=== PATIENT | male | born 1995 | race Caucasian/White ===

== ENCOUNTER 2022-12-22 00:42 | Emergency (ER) | payer BC, OTHER, SELFPAY ==
[2022-12-22 00:46] VITALS: BP 131/75; PULSE 97; RESP 17; TEMP 36.3; O2SAT 100; BMI 24.4
[2022-12-22 00:52] VITALS: BP 131/75; PULSE 95; O2SAT 100
[2022-12-22 01:11] LABS: Basophils # 0.1 K/mm3 (0-0.2); Basophils % 1.6 % (0.1-2.0); Chloride 105 mmol/L (98-107); Eosinophils # 0.1 K/mm3 (0.0-0.4); Hematocrit 44.1 % (42.0-52.0); Hemoglobin 14.7 g/dL (14.1-18.0); Lymphocytes # 2.6 K/mm3 (0.7-4.5); Mean Corpuscular HGB Conc 33.3 g/dL (31.8-35.4); Mean Platelet Volume 8.7 fl (7.4-10.4); Monocytes # 0.5 K/mm3 (0.1-1.0); Monocytes % 7.1 % (1.7-9.3); Neutrophils # 3.8 K/mm3 (1.8-7.8); Neutrophils % 53.2 % (37.0-80.0); Platelet Count 314 K/mm3 (142-424); Red Blood Count 5.25 M/mm3 (4.60-6.20); Red Cell Distribution Width 13.6 % (11.5-17.5); Sodium 141 mmol/L (136-145); White Blood Count 7.1 K/mm3 (4.8-10.8)
[2022-12-22 01:14] LABS: Alanine Aminotransferase 73 U/L (12-78); Alkaline Phosphatase 60 U/L (38-126); Aspartate Amino Transferase 59 U/L (17-59); Bilirubin,Total 0.5 mg/dl (0.2-1.3); Blood Urea Nitrogen 10 mg/dl (9-20); Creatinine Clearance Estimated 128 mL/min (50-200); Estimated Glomerular Filt Rate 90 ml/min (>60); GFR (African American) 108 ML/MIN (>60)
[2022-12-22 01:15] LABS: Albumin Level 5.2 g/dl (3.5-5.0); Albumin/Globulin Ratio 1.7 (1.1-1.8); Calcium 8.8 mg/dl (8.4-10.2); Carbon Dioxide 24 mmol/L (22.0-30.0); Glucose 137 mg/dl (74-100); Total Protein,Serum 8.2 g/dl (6.3-8.2)
--- NOTE | 2022-12-22 01:22 | [facility].EDALCO ---
Discharge Plan Disposition Chief Complaint: Alcohol Prescriptions Prescriptions: No Action venlafaxine 50 mg Tablet 50 mg PO DAILY lamotrigine 25 mg Tablet,Disintegrating 25 mg PO DAILY Referrals Follow up/Referrals: Provider,Referral, MD [Primary Care Provider] - See instructions Clinical Impressions Clinical Impression: Alcoholic intoxication Instructions Patient Instructions: DI for Alcohol Use Disorder Discharge ED Provider: Peng (ED)Ghulam Alcohol HPI General Chief Complaint: Alcohol Stated Complaint: Intoxicated Time Seen by Provider: 12/22/22 01:22 Mode of Arrival: Wheelchair Source of Information: Patient and Medical Record Limitations: No Limitations Description of Symptoms (Recalled from ER Triage Doc. by RN): pt brought to ED by father in law for alcohol intoxication. he [facility] and had too many drinks. pt denies any pain but reports nausea and vomiting. History of Present Illness HPI narrative: reported using etoh tonight - no fever or trauma - MD complaint: alcohol intoxication Last drink: hours (ago) Chronic alcohol use: No Previous visits for alcohol intoxication: No Recent trauma: No Associated symptoms: nausea and vomiting Treatments prior to arrival: none Related Data Home Medications Medication Instructions Recorded Confirmed lamotrigine 25 mg disintegrating 25 mg PO DAILY bipolar disorder 12/22/22 12/22/22 tablet venlafaxine 50 mg tablet 50 mg PO DAILY Depression 12/22/22 12/22/22 Allergies Allergy/AdvReac Type Severity Reaction Status Date / Time No Known Allergies Allergy Verified 12/22/22 01:00 [facility] Disclaimer: The information contained in this section may have been updated after the patient was seen, as this information can be updated by other users. Social History (Updated 12/22/22 @ 01:05 by Brenna Lr RN) Smoking Status: Never smoker alcohol intake: current current occupational status: employed Travel in the last 8 weeks: None ROS Obtained: Yes All systems reviewed & no additional complaints except as documented Physical Exam General General appearance: alert Head Head exam: normocephalic Eye Eye exam: Present PERRL and EOMI; Absent scleral icterus ENT ENT exam: Present mucous membranes moist Neck Neck exam: Present trachea midline Respiratory Respiratory exam: Present normal lung sounds bilaterally; Absent respiratory distress Cardiovascular Cardiovascular exam: Present regular rate Abdominal Exam Abdominal exam: Present soft Extremities Exam Extremities exam: Present full ROM Neurological Exam Neurological exam: Present alert, oriented X3, CN II-XII intact and other (gcs=14); Absent motor sensory deficit Skin Skin exam: Absent rash Medical Decision Making Medical Records Medical records reviewed: Yes I reviewed the patient's medical records. Michael Inquiry Pt receiving controlled substance: No Vital Signs: 12/22/22 00:46 12/22/22 00:52 Temperature 97.3 F L Temperature Source Oral Pulse Rate 95 H Pulse Rate [Left Radial] 97 H Respiratory Rate 17 Blood Pressure 131/75 Blood Pressure [Right Arm] 131/75 Blood Pressure Mean [Right Arm] 93 Blood Pressure Source [Right Arm] Automatic Cuff Blood Pressure Position [Right Arm] Sitting 02 Sat by Pulse Oximetry 100 100 Oxygen Delivery Method Room Air Room Air Lab Data Lab results reviewed: Yes I reviewed the patient's lab results. Lab Results 12/22/22 00:50: WBC 7.1, RBC 5.25, Hgb 14.7, Hct 44.1, MCV 84.0, MCH 28.0, MCHC 33.3, RDW 13.6, Plt Count 314, MPV 8.7, Neut % (Auto) 53.2, Lymph % (Auto) 36.0, [place] % (Auto) 7.1, Eos % (Auto) 2.0, Baso % (Auto) 1.6, Neut # (Auto) 3.8, Lymph # (Auto) 2.6, [place] # (Auto) 0.5, Eos # (Auto) 0.1, Baso # (Auto) 0.1 12/22/22 00:50: Sodium 141, Potassium 4.0, Chloride 105, Carbon Dioxide 24, Anion Gap 16.0 H, BUN 10, Creatinine 1.00, Estimated Creat Clear 128, Estimated GFR 90,
[2022-12-22 01:35] LABS: Ethyl Alcohol 197 mg/dl (0-10)
[2022-12-22 01:39] VITALS: O2SAT 96
[2022-12-22 01:49] VITALS: O2SAT 97
[2022-12-22 03:13] VITALS: BP 130/70; PULSE 90; RESP 18; TEMP 36.6; O2SAT 99
== END 2022-12-22 03:18 | disposition home or self-care (01) ==
LOC: ER 01:07
PROVIDERS: Emergency Provider Emergency Medicine
DX: F10.129 Alcohol abuse with intoxication, unspecified (principal)
CPT/HCPCS: 80053; 85025; 96361; 96374; 99284; 99285; J2405